=== PATIENT | female | born 1960 | race Caucasian/White ===

== ENCOUNTER 2019-03-17 18:16 | Inpatient (IN) | payer OTHER ==
[~2019-03-17] VITALS: Ht 160 cm; Wt 90.8 kg
[2019-03-17 19:37] VITALS: Ht 160 cm; Wt 90.8 kg
[2019-03-17 20:39] LABS: BASOPHIL % 0.2 % (0-2); RED CELL DISTRIBUTION WIDTH 13.6 % (11.5-14.5)
[2019-03-17 20:41] LABS: PLATELET COUNT 403 x10^3mcL (130-400)
[2019-03-17 20:43] LABS: CALCIUM 9.6 mg/dL (8.5-10.1); CARBON DIOXIDE 28.8 mmol/L (21-32); CHLORIDE SERUM 102 mmol/L (98-107); CREATININE SERUM 0.7 mg/dL (0.6-1.0); GFR1 > 60 mL/min; GLUCOSE SERUM 105 mg/dL (74-106); POTASSIUM SERUM 3.5 mmol/L (3.5-5.1); SODIUM SERUM 140 mmol/L (136-145)
[2019-03-17 21:34] LABS: ALBUMIN 3.9 g/dL (3.4-5.0); ALKALINE PHOSPHATASE 101 U/L (46-116); AST/SGOT 16 U/L (15-37); BILIRUBIN TOTAL 0.58 mg/dL (0.20-1.00); LIPASE 339 IU/L (73-393)
[2019-03-17 21:50] LABS: TOTAL PROTEIN, SERUM 8.5 g/dL (6.4-8.2)
[2019-03-17 21:56] LABS: ALT/SGPT 21 U/L (14-59)
[2019-03-18 01:25] VITALS: BP 121/52
[2019-03-18 06:43] VITALS: BP 114/56
[2019-03-18 08:44] VITALS: BP 119/54
[2019-03-18 17:27] VITALS: BP 134/62
[2019-03-18 20:57] VITALS: BP 116/51
[2019-03-19 05:25] VITALS: BP 150/77
[2019-03-19 06:30] LABS: ALKALINE PHOSPHATASE 84 U/L (46-116); ALT/SGPT 15 U/L (14-59); AST/SGOT 16 U/L (15-37); BILIRUBIN TOTAL 0.5 mg/dL (0.20-1.00); CALCIUM 8.2 mg/dL (8.5-10.1); CHLORIDE SERUM 106 mmol/L (98-107); CREATININE SERUM 0.8 mg/dL (0.6-1.0); GFR1 > 60 mL/min; GLUCOSE SERUM 93 mg/dL (74-106); MAGNESIUM 1.8 mg/dL (1.8-2.4); POTASSIUM SERUM 4.3 mmol/L (3.5-5.1); SODIUM SERUM 140 mmol/L (136-145); TOTAL PROTEIN, SERUM 6.6 g/dL (6.4-8.2)
[2019-03-19 06:50] LABS: ALBUMIN 2.6 g/dL (3.4-5.0)
[2019-03-19 07:21] LABS: BASOPHIL % 0.3 % (0-2); PLATELET COUNT 320 x10^3mcL (130-400); RED CELL DISTRIBUTION WIDTH 13.4 % (11.5-14.5)
[2019-03-19 08:52] VITALS: BP 124/60
[2019-03-19 17:19] VITALS: BP 130/70
[2019-03-19 20:31] VITALS: BP 139/77
[2019-03-20 04:38] VITALS: BP 109/55
[2019-03-20 08:24] VITALS: BP 115/56
[2019-03-20 20:31] VITALS: BP 125/67
[2019-03-21 05:39] VITALS: BP 132/69
[2019-03-21 06:42] LABS: BASOPHIL % 0.5 % (0-2); PLATELET COUNT 352 x10^3mcL (130-400); RED CELL DISTRIBUTION WIDTH 13.5 % (11.5-14.5)
[2019-03-21 07:20] LABS: ALKALINE PHOSPHATASE 82 U/L (46-116); ALT/SGPT 14 U/L (14-59); AST/SGOT 14 U/L (15-37); BILIRUBIN TOTAL 0.4 mg/dL (0.20-1.00); CALCIUM 8.4 mg/dL (8.5-10.1); CARBON DIOXIDE 27.9 mmol/L (21-32); CHLORIDE SERUM 108 mmol/L (98-107); CREATININE SERUM 0.7 mg/dL (0.6-1.0); GFR1 > 60 mL/min; GLUCOSE SERUM 76 mg/dL (74-106); MAGNESIUM 1.9 mg/dL (1.8-2.4); POTASSIUM SERUM 3.7 mmol/L (3.5-5.1); SODIUM SERUM 144 mmol/L (136-145); TOTAL PROTEIN, SERUM 6.4 g/dL (6.4-8.2)
[2019-03-21 07:21] LABS: ALBUMIN 2.5 g/dL (3.4-5.0)
[2019-03-21 08:38] VITALS: BP 126/57
[2019-03-21 09:43] VITALS: BP 126/57
== END 2019-03-21 11:06 | disposition home or self-care (01) | DRG 440 ==
LOC: ED 18:16 → MU 03-18 00:40
PROVIDERS: Emergency Medicine; Internal Medicine Pulmonary Disease; ADMIT Internal Medicine Pulmonary Disease
DX: K85.90 Acute pancreatitis without necrosis or infection, unspecified (principal); E03.9 Hypothyroidism, unspecified; Z90.710 Acquired absence of both cervix and uterus
CPT/HCPCS: 90658; G0378; J1650; J1885; J2270; J2405; J7030; Q0092